=== PATIENT | female | born 1935 | race Caucasian/White ===

== ENCOUNTER 2017-11-09 15:57 | Inpatient (IN) | payer OTHER ==
[~2017-11-09] VITALS: Ht 165.1 cm; Wt 64.0 kg
--- NOTE | ~2017-11-09 | PROC ---
[address] [address] PROCEDURE REPORT Name: DELMI CASH Room: [address] IN .R.#: [id number] Admission: 11/09/17 Attend Phys: Dilshad Talley MD Discharge: 11/12/17 Date of : 33 Report #: [id number] THIS REPORT FOR: //name// For GI report, please see Provation report in Perceptive 7 content. By: 1028Medical Records Staff FLORIN /NKECHI
[~2017-11-09 15:57] MED LIST: ACETAMINOPHEN325 M1 PO; ASPIR 8181 MG PO; ASPIRIN81 M2; BRILINTA90 MG PO; CALCIUM 600 +1 EA13 PO; CEFDINIR300 MG; CENTRUM SILVER1 EAC4 PO; COZAAR 25 MG TA25 M1 PO; FLONASE 0.05%50 MCG NASAL; GABAPENTIN 100100 MG PO; GLUCOSAMINE CH1 EAC7; IMDUR 30 MG TAB30 M1 PO; LEVAQUIN 250 M250 MG PO; LEVOTHYROXINE0.05 MG; LEVOXYL50 MCG PO; LOPRESSOR25 PO; MILLIPRED DP5 M1; MUCINEX DM TABL1 TA1; OSELB75 PO; POTASSIUM99 M1; PRAVACHOL20 MG PO; PREDNISONE 10 M10 M1 PO; SPIRIVA INH; ZOCOR OR
[2017-11-09 16:03] VITALS: BP 187/73
[2017-11-09 16:25] LABS: HEMATOCRIT 24.3 % (37.0-47.0); HEMOGLOBIN 7.3 gm/dL (12.0-15.0); MCH 21.4 pg (26.0-34.0); MCHC 30.2 g/dL (28.0-37.0); MCV 71.1 fL (80.0-100.0); MPV 8.1 fl. (7.2-11.1); NUCLEATED RBCS 0 /100WBC; PLATELET COUNT* 182 thou/uL (150-400); RBC 3.41 mil/uL (4.20-5.00); RDW-CV 17.4 % (10.5-14.5); WBC 5.3 thou/uL (4.0-11.0)
[2017-11-09 16:34] LABS: ANION GAP 9 mmol/L (7-16); BUN 18 mg/dL (7-18); CALCIUM 8.6 mg/dL (8.5-10.1); CHLORIDE 107 mmol/L (98-107); CO2 28 mmol/L (21-32); CREATININE 1.3 mg/dL (0.6-1.3); GLUCOSE 131 mg/dL (70-99); POTASSIUM 4.1 mmol/L (3.5-5.1); SODIUM 144 mmol/L (136-145)
[2017-11-09 16:35] LABS: APTT 22.6 Seconds (25.0-31.3)
[2017-11-09 16:45] LABS: ALBUMIN 3.9 g/dL (3.4-5.0); ALKALINE PHOSPHATASE 52 U/L (46-116); NT-PRO BRAIN NAT PEPTIDE 207 pg/mL (<300); SGOT 16 U/L (15-37); SGPT 17 U/L (30-65); TOTAL BILIRUBIN 0.2 mg/dL (<0.1-1.0); TROPONIN-I LEVEL <0.06 ng/mL (<0.06)
[2017-11-09 17:02] LABS: ABSOLUTE EOSINOPHILS 0.4 thou/uL (0.0-0.7); ABSOLUTE LYMPHOCYTES 1.8 thou/uL (0.8-5.3); ABSOLUTE MONOCYTES 0.3 thou/uL (0.0-1.2); ABSOLUTE NEUTROPHILS 2.8 thou/uL (1.6-8.1)
[2017-11-09 17:03] LABS: ANISOCYTOSIS 1+; HYPOCHROMASIA 2+; MICROCYTES 1+; PLATELET ESTIMATE ADEQUATE
[2017-11-09 18:01] VITALS: BP 145/63
[2017-11-09 18:06] LABS: URINE BILIRUBIN NEGATIVE (Negative); URINE BLOOD 1+ (Negative); URINE CLARITY CLEAR; URINE COLOR YELLOW; URINE GLUCOSE-RANDOM NEGATIVE (Negative); URINE KETONES NEGATIVE (Negative); URINE LEUKOCYTES-REFLEX 1+ (Negative); URINE NITRITE-REFLEX NEGATIVE (Negative); URINE PROTEIN NEGATIVE (Negative); URINE UROBILINOGEN 0.2 E.U./dl (0.2-1.0)
[2017-11-09 18:20] LABS: CASTS None Seen /LPF (None Seen); CRYSTALS None Seen /LPF (None Seen); MUCUS None Seen strn/LPF (None Seen); SQUAMOUS 0-3 Few /LPF (0-3)
[2017-11-09 18:21] LABS: BACTERIA-REFLEX 1-9 Few /HPF (None Seen); URINE RBC 0-2 Rare /HPF (0-2); URINE WBC-REFLEX 0-5 Rare /HPF (0-5)
[2017-11-09 20:15] VITALS: BP 102/51
[2017-11-10] VITALS (8 sets, daily range): BP systolic 125–146; BP diastolic 45–59
[2017-11-10 04:22] LABS: HEMATOCRIT 22.7 % (37.0-47.0)
[2017-11-10 04:28] LABS: HEMOGLOBIN 6.8 gm/dL (12.0-15.0)
--- NOTE | 2017-11-10 06:33 | NUR ---
PT SLEPT MOST OF SHIFT. ASSESSMENT DOCUMENTED. MEDS GIVEN PER E-DEC. IV PATENT. NO REPORTS OF PAIN OR NAUSEA. PT DID REPORT FEELING WEAK WHEN AMBULATING. LABS RECIEVED, CRITICAL LAB REPORTED TO DR. GARCIA RECIEVED. WILL CONTINUE TO MONITOR.
--- NOTE | 2017-11-10 11:49 | NUR ---
SW met with pt to complete initial assessment, introduce self, and SW role. Pt alert and oriented. Pt dtr and pt in the room. Pt anticipates being able to dc home with . Pt is interested in HH services at dc. Pt has a cane if needed. SW to continue to follow to assist with safe dc planning.
--- NOTE | 2017-11-10 14:32 | EKG ---
[place] [address] ELECTROCARDIOGRAM REPORT Name: DELMI CASH Room: [address] ADM IN .R.#: [id number] Admission: 11/09/17 Attend Phys: Dilshad Talley MD Discharge: Date of : 33 Report #: [id number] THIS REPORT FOR: //name// [facility] Test Date: 2017-11-09 Test Time: 16:03:46 Pat Name: DELMITERESITA WEILEY Department: Room: [facility] Gender: F Software Test Engineer: Raegan SUAREZ : 1935 Requested By: Rio Murphy Order Number: [id number] MD: Nickolas Humphreys Measurements Intervals [place] Rate: 77 P: 75 [place]: 175 QRS: 29 QRSD: 79 T: 20 QT: 391 QTc: 443 Interpretive Statements Sinus rhythm Nonspecific repol abnormality, diffuse leads Compared to ECG 04/03/2016 08:30:37 No significant changes Electronically Signed On 11-10-2017 14:32:36 VERIFICATION MANAGER by Nickolas Humphryes [email or web address] <ELECTRONICALLY SIGNED> By: Nickolas Humphreys MD, [facility] 11/10/17 1432 1603 1603 Nickolas Humphreys MD, [facility] /EPI
[2017-11-10 15:10] LABS: HEMATOCRIT 26.2 % (37.0-47.0); HEMOGLOBIN 8.2 gm/dL (12.0-15.0)
--- NOTE | 2017-11-10 19:27 | NUR ---
PATIENT RESTING IN BED. PATIENT DENIES ANY PAIN. PATIENT HAD 1 UNIT BLOD THIS AM WITHOUT INCIDENT. PATIENT STARTED ON BOWEL PREP THIS AFTERNOON. TRISTA IS CURRENTLY HAVING BOWEL MOVEMENTS. PATIENT ON CLEAR LIQUID DIET. PATIENT DENIES ANY NEEDS AT THIS TIME. CALL LIGHT WITHIN REACH. FAMILY AT BEDSIDE. WILL CONTINUE TO MONITOR.
--- NOTE | 2017-11-10 22:23 | NUR ---
HOSPITALIST PAGED TO SEE IF BLOOD THINNER WAS STILL TO BE GIVEN SINCE PT IS SCHEDULED FOR COLONOSCOPY TOMORROW. HOSPITALIST SAID TO ASK GI. GI PAGED TWICE. WILL HOLD UNTIL GI CALLS BACK.
[2017-11-11 00:09] VITALS: BP 130/57
[2017-11-11 04:00] VITALS: BP 125/50
[2017-11-11 04:47] LABS: HEMATOCRIT 27.3 % (37.0-47.0); HEMOGLOBIN 8.5 gm/dL (12.0-15.0); MCH 22.8 pg (26.0-34.0); MCV 73.6 fL (80.0-100.0); MPV 8.8 fl. (7.2-11.1); RBC 3.71 mil/uL (4.20-5.00); RDW-CV 19.5 % (10.5-14.5); WBC 7.3 thou/uL (4.0-11.0)
--- NOTE | 2017-11-11 05:33 | NUR ---
PT SLEPT MOST OF NIGHT. ASSESSMENT DOCUMENTED, MEDS GIVEN PER E-MAR. IV PATENT. NO REPORTS OF PAIN. PT DRANK GOLYTELY TOLERATED. STOOLS BECOMING MORE CLEAR THROUGH SHIFT. NO CONCERNS AT THIS TIME, WILL CONTINUE TO MONTIOR.
[2017-11-11 07:19] VITALS: BP 134/53
[2017-11-11 09:25] VITALS: BP 134/53
[2017-11-11 11:48] VITALS: BP 135/53
--- NOTE | 2017-11-11 16:19 | NUR ---
PATIENT HAS BEEN ALERT AND ORIENTED TODAY VERY PLEASANT. FAMILY AT BEDSIDE TODAY. PATIENT IS NPO FOR GI PROCEDURES TODAY. NO COMPLAINTS OF ANY PAIN TODAY. VITAL SIGNS STABLE ON ROOM AIR. CALL LIGHT IS IN REACH.
--- NOTE | 2017-11-11 17:38 | NUR ---
ASSUME CARE OF PT. PT BACK FROM COLONOSCOPY. PT A&OX3. FAMILY AT BS AND UPDATED ON CARE
--- NOTE | 2017-11-11 18:42 | NUR ---
PER GI PT CAN GO TONIGHT IF SHE IS ABLE TO EAT,FEELS WELL AND IS MORE AWAKE. PT AND FAMILY WOULD LIKE TO STAY TONIGHT
[2017-11-11 20:30] VITALS: BP 164/50
[2017-11-12 00:07] VITALS: BP 120/46
[2017-11-12 03:57] VITALS: BP 133/50
--- NOTE | 2017-11-12 07:49 | NUR ---
PT SLEPT MOST OF SHIFT. ASSESSMENT DOCUMENTED. MEDS GIVEN PER E-MAR. PT REPORTED HAVING A HEADACHE, PAIN MEDS GIVEN PER E-MAR. PT CONCERNED ABOUT NOT HAVING LABS THIS AM. PT CURRENTLY RESTING COMFORTABLY IN BED.
[2017-11-12 08:20] VITALS: BP 123/57
[2017-11-12] MEDS ORDERED: DUONEB 2.5-0.5 M3 ML INH (08:55)
[2017-11-12] MEDS ORDERED: NEBULIZER MISCELL (08:55)
[2017-11-12 09:24] VITALS: BP 123/57
--- NOTE | 2017-11-12 10:32 | NUR ---
PATIENT IS ALERT AND ORIENTED TODAY VERY PLEASANT, FAMILY HAS BEEN AT BEDSIDE. PATIENT IS BEING DISCHARGED TO HOME WITH FAMILY. DISCHARGE INSTRUCTIONS GIVEN AND QUESTIONS ANSWERED FOR PATIENT AND FAMILY. IV REMOVED AND TELE MONITOR REMOVED, PATIENT LEFT VIA WHEEL CHAIR WITH BELONGINGS.
[2017-11-12 10:56] VITALS: BP 123/57
--- NOTE | 2017-11-15 11:03 | S ---
[place] [address] SURGICAL PATH RPT PROCEDURE Name: DELMI ROLDAN Room: [address] IN M.R.#: [id number] Admission: 11/09/17 Date of : 33 Discharge: 11/12/17 Report #: [id number] Path Case #: [id number] PATHOLOGY REPORT COLLECTION DATE: 11/11/2017 RECEIVED DATE: 11/11/2017 SUBMITTING PHYS: Dr. Mega Meredith OTHER PHYS: MD Nicholas Richards, SPECIMEN(S) RECEIVED: A.2nd portion of duodenum B.Transverse polyp C.Descending polyp * * * * * * * * * * * * FINAL DIAGNOSIS: A. Tissue submitted as "second portion of duodenum biopsy": - Multiple segments of normal small intestinal/duodenal mucosa and one segment of benign gastric mucosa showing moderate chronic and active inflammation and abundant Helicobacter pylori organisms, negative for granulomas and dysplasia. (See comment) B. Transverse polyp: - Tubular adenoma, negative for high-grade dysplasia. C. Descending colon polyp: - Tubular adenoma, negative for high-grade dysplasia. (CASSANDRA:jeffery; 11/14/2017) COMMENT: A. Review of Dr. Meredith' EGD procedure report dated 11/11/2017, reveals endoscopic findings of normal duodenum and mild erosive gastritis with biopsies taken of small bowel as well as of stomach for H. pylori. Special stain on A: H. pylori immuno PATHOLOGIST: Shivam Pineda M.D. REPORT ELECTRONICALLY SIGNED BY: Shivam Pineda M.D. DATE/TIME: 11/15/2017 11:02 * * * * * * * * * * * * GROSS PATHOLOGY: A. Received in formalin labeled "Delmi Roldan, second portion of duodenum BX," are 4 segments of bah soft tissue measuring 1.3 x 0.3 x 0.3 cm in aggregate dimensions and ranging from 0.2 to 0.4 cm in maximum dimension. The specimen is submitted entirely in cassette A1. B. Received in formalin labeled "Delmi Roldan, [place] [address] SURGICAL PATH RPT PROCEDURE Name: DELMI ROLDAN Room: [address] IN [facility].#: [id number] Admission: 11/09/17 Date of : 33 Discharge: 11/12/17 Report #: [id number] Path Case #: [id number] polyp," is a segment of bah soft tissue measuring 0.2 cm in maximum dimension. The specimen is submitted entirely in cassette B1. C. Received in formalin labeled "Delmi Roldan, descending colon polyp," is a segment of bah soft tissue measuring 0.3 cm in maximum dimension. The specimen is submitted entirely in cassette C1. (TSD; 11/11/2017) CLINICAL HISTORY: Acute posthemorrhagic anemia, nutritional anemia unspecified INITIAL CPT CODE(S): A; 73183, 38029 B; 99657 C; 92865 Professional services performed by [facility] at [facility], [address], [place] [address]. Technical services performed by [facility] at [address] [place] [address], [address], [place] [address]. [facility] [address] [place] [address] PHONE: [phone] DIRECTOR: Arash Blair M.D. * * * END OF REPORT * * *
--- NOTE | 2017-12-15 14:50 | CON ---
[address] [address] CONSULTATION Name: DELMI CASH Room: [address] IN .R.#: [id number] Admission: 11/09/17 Attend Phys: Dilshad Talley MD Discharge: 11/12/17 Date of : 33 Report #: [id number] THIS REPORT FOR: //name// CC: Dilshad Thompson Allen DATE OF SERVICE: 11/09/2017 REQUESTING PHYSICIAN: Dr. Dilshad Talley. REASON FOR CONSULT: Severe anemia. HISTORY OF PRESENT ILLNESS: This is an 82-year-old female with a remote history of endoscopic evaluation who does not remember how long and what the findings were. The patient presents with shortness of air and weakness and found to be severely anemic with hemoglobin in range of 6. Note that her hemoglobin was around 13 back in 2016. She is also iron deficient and has microcytosis with MCV of 71. She denies any hematochezia, melena, dyspepsia, dysphagia, odynophagia, nausea and vomiting. She admits to taking Excedrin occasionally. PAST MEDICAL HISTORY: Significant for history of dyslipidemia, hypothyroidism, osteoporosis, COPD, chronic kidney disease, transverse myelitis, coronary artery disease status post stenting, leg fracture and foot surgery: ALLERGIES: SIGNIFICANT TO SIMVASTATIN AND CONTRAST DYE. MEDICATIONS: Please refer to hospital MAR. SOCIAL HISTORY: The patient has remote history of tobaccoism, but has not smoked for 30 years. She denies alcohol use. FAMILY HISTORY: Noncontributory. PHYSICAL EXAMINATION: VITAL SIGNS: Reveals blood pressure of 145/59, respirations 16, pulse 74, temperature 97.2. LUNGS: Clear. CARDIOVASCULAR: Regular. ABDOMEN: Soft, nontender, nondistended. Bowel sounds are positive. NEUROLOGIC: The patient is alert and oriented x 3. LABORATORY DATA: Reveal sodium of 144, potassium 4.1, BUN is 18, creatinine 1.3, glucose is 131, AST 16, ALT 17, alkaline phosphatase 52, albumin is 3.9. Iron saturation is 15, TIBC 399. INR is 1.0. WBC is 5.3 with hemoglobin of 6.8 [place] [address] CONSULTATION Name: DELMI CASH Room: [address]#: [id number] Admission: 11/09/17 Attend Phys: Dilshad Talley MD Discharge: 11/12/17 Date of : 33 Report #: [id number] and platelets of 182. IMAGING: Portable chest x-ray was obtained, which showed no acute process. ASSESSMENT AND PLAN: The patient with microcytic anemia of iron deficiency, who denies any GI symptoms and also admits to taking Excedrin. Her last endoscopic evaluation was many years ago. I will go ahead and perform an upper and lower endoscopy to rule out different etiologies of GI blood loss. We will make further recommendations once the endoscopy is complete. <ELECTRONICALLY SIGNED> By: Steve Horowitz MD 12/15/17 1450 1352 [id number] Horowitz MD /nt
== END 2017-11-12 10:57 | disposition home or self-care (01) | DRG 812 ==
LOC: M.ERS 15:57 → M.3W 17:05 → M.TBA-ER 17:05 → M.3W 18:13
PROVIDERS: Family Medicine; ADMIT Internal Medicine
DX: D50.0 Iron deficiency anemia secondary to blood loss (chronic) (principal); I12.9 Hypertensive chronic kidney disease with stage 1 through stage 4 chronic kidney disease, or unspecified chronic kidney disease; N18.2 Chronic kidney disease, stage 2 (mild); E78.00 Pure hypercholesterolemia, unspecified; E03.9 Hypothyroidism, unspecified; M81.0 Age-related osteoporosis without current pathological fracture; J44.9 Chronic obstructive pulmonary disease, unspecified; E78.5 Hyperlipidemia, unspecified; I25.10 Atherosclerotic heart disease of native coronary artery without angina pectoris; D50.9 Iron deficiency anemia, unspecified; K64.4 Residual hemorrhoidal skin tags; K63.5 Polyp of colon; K29.70 Gastritis, unspecified, without bleeding; Z87.81 Personal history of (healed) traumatic fracture; Z87.891 Personal history of nicotine dependence; Z95.5 Presence of coronary angioplasty implant and graft; Z79.899 Other long term (current) drug therapy; Z88.8 Allergy status to other drugs, medicaments and biological substances; Z91.041 Radiographic dye allergy status; Z83.2 Family history of diseases of the blood and blood-forming organs and certain disorders involving the immune mechanism